=== PATIENT | female | born 1995 | race American Indian/Alaskan Native ===

== ENCOUNTER 2021-02-02 21:55 | Emergency (ER) | payer MEDICAID ==
--- NOTE | 2021-02-02 23:23 | XRay Report ---
RIGHT ANKLE 3 VIEWS INDICATION / CLINICAL INFORMATION: fall, pain. COMPARISON: None available. FINDINGS: No fracture or other significant abnormality. Signer Name: Bright Jiménez MD Signed: 02/02/2021 11:18 PM Workstation Name: [id number]
[2021-02-03] MEDS ORDERED: ACETAMINOPHEN 500 MG TAB PO ONE (00:23)
[2021-02-03] MEDS ORDERED: HYDROcodone/ACETAMINOPHEN 5-325 MG TAB PO ONE (01:56)
[2021-02-03] MEDS ORDERED: ONDANSETRON 4 MG ODT TAB PO ONE (01:56)
[2021-02-03] MEDS ORDERED: IBUPROFEN 600 MG TAB PO ONE (01:56)
--- NOTE | 2021-02-03 02:01 | Emergency Department Report ---
ED Lower Extremity HPI - General Chief Complaint: Extremity Injury, Lower Stated Complaint: RT ANKLE INJURY Source: patient Mode of arrival: Wheelchair Limitations: No Limitations - History of Present Illness Initial Comments: Patient is a 25-year-old -[place] female with no past medical history presents to the ED with complaint of acute onset persistent severe right ankle pain and swelling after she slipped, twisted her right ankle while riding a hover board about 4 hours ago. Patient states that she is unable to bear weight on the right leg because of severe right ankle pain and swelling. Patient denies head or neck injuries, back pain, hip pain, nausea and vomiting, loss of consciousness, seizures, syncope, palpitations, dizziness, numbness and tingling or weakness of right leg. MD Complaint: ankle injury (Right ankle pain and swelling) -: Sudden, hour(s) (4) Injury: Ankle: Right (Right ankle pain and swelling) Type of Injury: inversion Place: street/outdoors Severity: severe Severity scale (0 -10): 8 Improves With: nothing Worsens With: weight bearing, movement, palpation Context: fall (Twisted right ankle while riding a hover board) Associated Symptoms: snap/pop sensation, swelling, able to partially bear weight. denies: numbness, tingling, unable to bear weight - Related Data Previous Rx's Medication Instructions Recorded Last Taken Type Ibuprofen [Motrin] 600 mg PO Q8H PRN #30 tablet 02/03/21 Unknown Rx traMADoL [Ultram] 50 mg PO Q6HR PRN #12 tablet 02/03/21 Unknown Rx Allergies Allergy/AdvReac Type Severity Reaction Status Date / Time No Known Allergies Allergy Verified 02/03/21 01:54 ED Review of Systems ROS: Stated complaint: RT ANKLE INJURY Other details as noted in HPI Constitutional: denies: chills, fever Eyes: denies: eye pain, eye discharge, vision change ENT: denies: ear pain, throat pain Respiratory: denies: cough, shortness of breath, wheezing Cardiovascular: denies: chest pain, palpitations Endocrine: no symptoms reported Gastrointestinal: denies: abdominal pain, nausea, diarrhea Genitourinary: denies: urgency, dysuria, discharge Musculoskeletal: joint swelling, arthralgia (Right ankle pain). denies: back pain Skin: denies: rash, lesions Neurological: denies: headache, weakness, paresthesias Psychiatric: denies: anxiety, depression Hematological/Lymphatic: denies: easy bleeding, easy bruising ED Past Medical Hx - Past Medical History Previous Medical History?: No - Surgical History Additional Surgical History: x2 - Social History Smoking Status: Current Every Day Smoker Substance Use Type: Marijuana - Medications Home Medications: Home Medications Medication Instructions Recorded Confirmed Last Taken Type Ibuprofen [Motrin] 600 mg PO Q8H PRN #30 tablet 02/03/21 Unknown Rx traMADoL [Ultram] 50 mg PO Q6HR PRN #12 tablet 02/03/21 Unknown Rx ED Physical Exam - General Limitations: No Limitations General appearance: alert, in no apparent distress - Head Head exam: Present: atraumatic, normocephalic, normal inspection - Eye Eye exam: Present: normal appearance, PERRL, EOMI Pupils: Present: normal accommodation - ENT ENT exam: Present: normal exam, normal orophraynx, mucous membranes moist, TM's normal bilaterally, normal external ear exam - Neck Neck exam: Present: normal inspection, full ROM - Respiratory Respiratory exam: Present: normal lung sounds bilaterally. Absent: respiratory distress, wheezes, rales, rhonchi, stridor, chest wall tenderness, decreased breath sounds - Cardiovascular Cardiovascular Exam: Present: regular rate, normal rhythm, normal heart sounds. Absent: systolic murmur, diastolic murmur, rubs, gallop - GI/Abdominal GI/Abdominal exam: Present: soft, normal bowel sounds. Absent: tenderness, guarding, rebound, hyperactive bowel sounds, hypoactive bowel sounds, organomegaly - Extremities Exam Extremities exam: Present: normal inspection, tenderness (Palpable right ankle tenderness with mild swelling and limited range of motion due to pain), normal capillary refill, joint swelling. Absent: full ROM (Limited range of motion of right ankle due to pain) - Back Exam Back exam: Present: normal inspection, full ROM. Absent: tenderness, CVA tenderness (R), CVA tenderness (L), muscle spasm, paraspinal tenderness, vertebral tenderness - Neurological Exam Neurological exam: Present: alert, oriented X3, CN II-XII intact, normal gait, reflexes normal - Psychiatric Psychiatric exam: Present: normal affect, normal mood - Skin Skin exam: Present: warm, dry, intact, normal color. Absent: rash ED Course Vital Signs 02/02/21 22:50 Temperature 98.2 F Pulse Rate 84 Respiratory 18 Rate Blood Pressure 145/81 O2 Sat by Pulse 100 Oximetry ED Lower Extremity MDM - Radiology Data Radiology results: report reviewed, image reviewed [facility] [address] [place] [address] XRay Report Signed Patient: VINCENT REGALADO MR#: [id number] : 1995 Acct:[id number] Age/Sex: 25 / F ADM Date: 02/02/21 Loc: ED Attending Dr: Ordering Physician: PANFILO MATTHEWS MD Date of Service: 02/02/21 Procedure(s): XR ankle 3+V RT Accession Number(s): [id number] cc: ED MD BYRON Fluoro Time In Minutes: RIGHT ANKLE 3 VIEWS INDICATION / CLINICAL INFORMATION: fall, pain. COMPARISON: None available. FINDINGS: No fracture or other significant abnormality. Signer Name: Bright Jiménez MD Signed: 02/02/2021 11:18 PM Workstation Name: [id number] Transcribed By: TM Dictated By: Bright Jiménez MD Electronically Authenticated By: Bright Jiménez MD Signed Date/Time: 02/02/212317 DD/ 17 TD/TT: - Medical Decision Making This is a 25-year-old -[place]namese female with no past medical history presents to the ED with complaint of acute onset persistent severe right ankle pain and swelling after she slipped, twisted her right ankle while riding a hover board about 4 hours ago. Patient states that she is unable to bear weight on the right leg because of severe right ankle pain and swelling. In the ED, patient is alert and oriented x3 and is not in any distress but patient appears to be in pain. Patient was treated for pain in the ED and right ankle x-ray shows no acute fractures or subluxations. Based on the history and physical exam findings as well as on imaging reports, patient's injury is due to muscle strain or right ankle sprain. Patient's right ankle was splinted with Boogie wrap and the patient was fitted with crutches. On reevaluation, patient's pain is well controlled medications. Patient was discharged home on pain medications and advised to follow-up with her primary care physician in 5 to 7 days for reevaluation or return to the ED immediately if symptoms get worse. - Differential Diagnosis Ankle sprain; ankle fracture; muscle strain; ankle contusion Critical care attestation.: If time is entered above; I have spent that time in minutes in the direct care of this critically ill patient, excluding procedure time. ED Disposition Clinical Impression: Severe sprain of right ankle Qualifiers: Encounter type: initial encounter Qualified Code(s): S93.401A - Sprain of unspecified ligament of right ankle, initial encounter Muscle strain of right ankle Qualifiers: Encounter type: initial encounter Qualified Code(s): S96.911A - Strain of unspecified muscle and tendon at ankle and foot level, right foot, initial encounter Disposition: TO HOME OR SELFCARE Is pt being admited?: No Does the pt Need Aspirin: No Condition: Stable Instructions: Muscle Strain, [id number], Ankle Sprain, [id number], Elastic Bandage and RICE Therapy Additional Instructions: The x-ray of your right ankle showed no acute fractures or subluxations. The injury he sustained is likely due to severe right ankle sprain or muscle strain. Therefore take medications with food, drink plenty of fluids, return to the ED immediately if symptoms get worse, otherwise follow-up with your primary care physician in 7 to 10 days for reevaluation. Prescriptions: Ibuprofen [Motrin] 600 mg PO Q8H PRN #30 tablet PRN Reason: Pain traMADoL [Ultram] 50 mg PO Q6HR PRN #12 tablet PRN Reason: Pain Referrals: [facility] [Provider Group] - 7-10 days Forms: Work/School Release Form(ED) Time of Disposition: :02 Print Language: CITIZEN OF [place]
[2021-02-03 02:27] VITALS: BP 124/66
== END 2021-02-03 04:23 | disposition home or self-care (01) ==
LOC: ED 21:55
DX: S93.401A Sprain of unspecified ligament of right ankle, initial encounter (principal); S96.911A Strain of unspecified muscle and tendon at ankle and foot level, right foot, initial encounter; F17.200 Nicotine dependence, unspecified, uncomplicated; Z79.899 Other long term (current) drug therapy; W01.0XXA Fall on same level from slipping, tripping and stumbling without subsequent striking against object, initial encounter; Y93.89 Activity, other specified; Y92.89 Other specified places as the place of occurrence of the external cause; Y99.8 Other external cause status
CPT/HCPCS: 99283; Q0162